=== PATIENT | female | born 1985 | race Caucasian/White ===

== ENCOUNTER 2016-12-03 21:47 | Emergency (ER) | payer OTHER ==
[2016-12-03 21:56] VITALS: BP 123/82
--- NOTE | 2016-12-03 21:58 | UC ---
Complaint Female HPI - HPI Summary HPI Summary: The patient comes in today for: 1. Vaginal itching and burning with urination: Onset: Last night. Palliative/Provocative: Nothing makes it better or worse. Quality: Burning, itching. Region: Severity: 07/13 Time: Constant. Associated symptoms: Previous disease: last one about one month ago. Rx: Terazol 7 and diflucan. Pelvic exam done at that time. Immuncompomize: None Unusual bleeding: None * - History Of Current Complaint Stated Complaint: PERSONAL Time Seen by Provider: 12/03/16 21:50 Hx Obtained From: Patient - Allergies/Home Medications Allergies/Adverse Reactions: Allergies Allergy/AdvReac Type Severity Reaction Status Date / Time Sulfa Antibiotics Allergy Intermediate Hives Verified 12/03/16 21:56 Home Medications: Home Medications Iud 12/03/16 [History] Montelukast Sodium TAB* [Singulair 10 MG TAB*] 10 mg PO BEDTIME 12/03/16 [ History Confirmed 12/03/16] PMH/Surg Hx/FS Hx/Imm Hx Previously Healthy: No Other Endocrine History: No DM or thyroid dz. Other Cardiovascular History: No cardiac problems or HTN> Other Respiratory History: + Asthma, but no PE. Other GI/ History: No GERD or ulcer, or renal disease. Other Neurological History: NO seizures or chronic headaches. Other Psychological History: No anxiety, depression or bipolar. Other Cancer History: No cancers Other History Of: Negative For: HIV, Hepatitis B, Hepatitis C, Anticoagulant Therapy - Family History Known Family History: Negative: Cardiac Disease, Hypertension - Social History Occupation: Student Alcohol Use: Occasionally Substance Use Type: None Smoking Status (MU): Never Smoked Tobacco Review of Systems Constitutional: Negative Skin: Negative Eyes: Negative ENT: Negative Respiratory: Negative Cardiovascular: Negative Gastrointestinal: Negative Genitourinary: Negative All Other Systems Reviewed And Are Negative: Yes Physical Exam Triage Information Reviewed: Yes Appearance: Well-Appearing, No Pain Distress, Well-Nourished Vital Signs Reviewed: Yes Eyes: Positive: Conjunctiva Clear. Negative: Discharge ENT: Positive: Hearing grossly normal. Negative: Pharyngeal erythema, Nasal congestion, Nasal drainage, TM bulging, TM dull, TM red, Tonsillar swelling Dental: Negative: Gross Decay/Caries @, Dental Fracture @ Neck: Positive: Supple, Nontender, No Lymphadenopathy. Negative: Nuchal Rigidity Respiratory: Positive: Chest non-tender, Lungs clear, No respiratory distress, No accessory muscle use. Negative: Crackles, Wheezing Cardiovascular: Positive: RRR, No Murmur Abdomen Description: Positive: Nontender, No Organomegaly, Soft. Negative: CVA Tenderness (R), CVA Tenderness (L), Distended, Guarding Musculoskeletal: Positive: Strength Intact, ROM Intact Neurological: Positive: Alert, Muscle Tone Normal Psychological: Positive: Age Appropriate Behavior, Consolable Skin: Negative: rashes, breakdown UC Physical Exam Vital Signs On Initial Exam: Initial Vitals Temp Pulse Resp BP Pulse Ox 97.6 F 84 16 123/82 99 12/03/16 21:51 12/03/16 21:51 12/03/16 21:51 12/03/16 21:51 12/03/16 21:51 - Genitalia Exam Female Genitourinary: Other - Patient was encouraged to get confirmatory pelvic exam, but she stated that she was pretty sure that her symptoms were from a yeast infection and declined the exam just request Terazole 7 Complaint Female Dx - Differential Dx/Diagnosis Provider Diagnoses: yeast vaginitis Discharge - Discharge Plan Condition: Stable Disposition: HOME Patient Education Materials: Vulvovaginal Candidiasis (ED) Additional Instructions: Please see your primary care or [facility] provider if you don't do well with this treatment or if you get worse.
== END 2016-12-03 22:18 | disposition home or self-care (01) ==
LOC: UCCORT 21:47
DX: B37.3 Candidiasis of vulva and vagina (principal); Z88.2 Allergy status to sulfonamides
CPT/HCPCS: 99202; G0463

== ENCOUNTER 2017-09-28 13:02 | Emergency (ER) | payer OTHER ==
[2017-09-28 13:48] VITALS: BP 125/72
--- NOTE | 2017-09-28 14:21 | UC ---
Lower Extremity/Ankle HPI - HPI Summary HPI Summary: missed 2 steps this am and fell injuring her L ankle. c/o pain and swelling despite elevation and ice plus motrin. - History of Current Complaint Chief Complaint: UCLowerExtremity Stated Complaint: (L) ANKLE INJURY S/P FALL Time Seen by Provider: 09/28/17 14:07 Hx Obtained From: Patient Hx Last Menstrual Period: unknown, mirena Onset/Duration: Sudden Onset Pain Intensity: 3 Aggravating Factor(s): Standing, Ambulation Alleviating Factor(s): Nothing Able to Bear Weight: Yes - Allergies/Home Medications Allergies/Adverse Reactions: Allergies Allergy/AdvReac Type Severity Reaction Status Date / Time Sulfa (Sulfonamide Allergy Hives Verified 09/28/17 13:44 Antibiotics) Home Medications: Home Medications Albuterol HFA INHALER* [Ventolin HFA Inhaler*] 1 puff INH Q4H PRN 09/28/17 [ History Confirmed 09/28/17] Ibuprofen TAB* [Motrin TAB* 800 MG] 800 mg PO ONCE 09/28/17 [History Confirmed 09/28/17] Levonorgestrel (Iud) [Mirena IUD] 20 mcg IU ONCE 09/28/17 [History Confirmed ] buPROPion SR TAB* [Wellbutrin SR TAB*] 100 mg PO DAILY 09/28/17 [History Confirmed 09/28/17] PMH/Surg Hx/FS Hx/Imm Hx Respiratory History: Asthma Other History Of: Negative For: HIV, Hepatitis B, Hepatitis C, Anticoagulant Therapy - Surgical History Surgical History: Yes Surgery Procedure, Year, and Place: hernia x2 - Family History Known Family History: Negative: Cardiac Disease, Hypertension - Social History Occupation: Student Lives: With Family Alcohol Use: Rare Substance Use Type: None Smoking Status (MU): Never Smoked Tobacco - Immunization History Vaccination Up to Date: Yes Review of Systems Constitutional: Negative Skin: Negative Eyes: Negative ENT: Negative Respiratory: Negative Cardiovascular: Negative Gastrointestinal: Negative Genitourinary: Negative Motor: Negative Neurovascular: Negative Musculoskeletal: Other: - pain, swelling L ankle Neurological: Negative Psychological: Negative Is Patient Immunocompromised?: No All Other Systems Reviewed And Are Negative: Yes Physical Exam Triage Information Reviewed: Yes Appearance: Well-Appearing Vital Signs: Initial Vital Signs Temp 98.5 F 09/28/17 13:42 Pulse 79 09/28/17 13:42 Resp 16 09/28/17 13:42 BP 125/72 09/28/17 13:42 Pulse Ox 100 09/28/17 13:42 Vital Signs Reviewed: Yes Eyes: Positive: Conjunctiva Clear ENT: Positive: Normal ENT inspection Neck: Positive: Supple, Nontender, No Lymphadenopathy Respiratory: Positive: Lungs clear, Normal breath sounds Cardiovascular: Positive: RRR, No Murmur Abdomen Description: Positive: Nontender, No Organomegaly, Soft Bowel Sounds: Positive: Present Musculoskeletal: Positive: Other: - LLE: hip, knee, achilles atraumatic. Lateral ankle tender and swollen. Foot nontender, s/v/m is intact. Diagnostics - Radiology No standard instances Xray Interpretation: Positive (See Comments) - no fx Radiology Interpretation Completed By: Radiologist Lower Extremity Course/Dx - Course Course Of Treatment: NO FX OR DISLOCATION. WILL SPLINT. PT HAS AN [facility] APPT IN [place] NEXT WEEK FOR HER SHOULDER AND WILL F/U WITH THIS WELL. - Differential Dx/Diagnosis Provider Diagnoses: Sprain L ankle Discharge - Sign-Out/Discharge Documenting (check all that apply): Discharge - Discharge Plan Condition: Stable Disposition: HOME Patient Education Materials: Ankle Sprain (DC) Referrals: Katherin Oh PA [Primary Care Provider] - If Needed Additional Instructions: FOLLOW UP WITH YOUR ORTHOPEDIST IN [place] SCHEDULED FOR NEXT WEEK. USE THE BOOT TO WALK UNTIL CLEARED. - Billing Disposition and Condition Condition: STABLE Disposition: HOME
--- NOTE | 2017-09-28 14:42 | RAD ---
HISTORY: Left ankle pain, trauma COMPARISONS: None VIEWS: 3, Frontal, lateral, and oblique views of the left ankle FINDINGS: BONE DENSITY: Normal. BONES: There is no displaced fracture. JOINTS: There is no arthropathy. ALIGNMENT: There is no dislocation. SOFT TISSUES: Unremarkable. OTHER FINDINGS: None. IMPRESSION: NO ACUTE OSSEOUS INJURY. IF SYMPTOMS PERSIST, RECOMMEND REPEAT IMAGING.
== END 2017-09-28 15:05 | disposition home or self-care (01) ==
LOC: UCCORT 13:02
DX: S93.402A Sprain of unspecified ligament of left ankle, initial encounter (principal); W19.XXXA Unspecified fall, initial encounter; Y92.9 Unspecified place or not applicable; Z88.2 Allergy status to sulfonamides
CPT/HCPCS: 99212; G0463

== ENCOUNTER 2018-07-04 13:05 | Emergency (ER) | payer OTHER ==
[2018-07-04 14:02] VITALS: BP 125/72
--- NOTE | 2018-07-04 14:49 | UC ---
Throat Pain/Nasal Kenneth HPI - HPI Summary HPI Summary: C/O sore throat since yesterday. Throat so swollen had to sleep sitting up. No cough or congestion. - History of Current Complaint Chief Complaint: UCRespiratory Stated Complaint: THROAT COMPLAINT Time Seen by Provider: 07/04/18 14:42 Hx Obtained From: Patient Hx Last Menstrual Period: 1 yr + ?: No Onset/Duration: Sudden Onset, Lasting Days - 1, Worse Since - yesterday Severity: Mild Pain Intensity: 2 Cough: None Associated Signs & Symptoms: Positive: Dysphagia. Negative: Wheezing, Hoarseness, Sinus Discomfort, Nasal Discharge, Fever Related History: Seasonal Allergies - Allergies/Home Medications Allergies/Adverse Reactions: Allergies Allergy/AdvReac Type Severity Reaction Status Date / Time Sulfa (Sulfonamide Allergy Hives Verified 07/04/18 14:02 Antibiotics) Home Medications: Home Medications Acetaminophen/Caffeine [Excedrin Tension Headache Cplt] 2 each PO DAILY PRN 07/22 [History Confirmed 07/04/18] PMH/Surg Hx/FS Hx/Imm Hx Respiratory History: Asthma Other History Of: Negative For: HIV, Hepatitis B, Hepatitis C, Anticoagulant Therapy - Surgical History Surgical History: Yes Surgery Procedure, Year, and Place: hernia x 2: umbilical, ventral - Family History Known Family History: Negative: Cardiac Disease, Hypertension, Diabetes - Social History Occupation: Student Lives: With Family Alcohol Use: Rare Substance Use Type: None Smoking Status (MU): Never Smoked Tobacco - Immunization History Vaccination Up to Date: Yes Review of Systems All Other Systems Reviewed And Are Negative: Yes ENT: Positive: Sore Throat Is Patient Immunocompromised?: No Physical Exam Triage Information Reviewed: Yes Appearance: No Pain Distress, Well-Nourished, Ill-Appearing Vital Signs: Initial Vital Signs Temp 98.8 F 07/04/18 13:58 Pulse 70 07/04/18 13:58 Resp 18 07/04/18 13:58 BP 125/72 07/04/18 13:58 Pulse Ox 100 07/04/18 13:58 Vital Signs Reviewed: Yes Eyes: Positive: Conjunctiva Inflamed ENT: Positive: Pharyngeal erythema - Posterior pharynx lymphoid hyperplasia, TMs normal Neck: Positive: Enlarged Nodes @ - shotty LA bilaterally Respiratory Exam: Normal Cardiovascular Exam: Normal Musculoskeletal Exam: Normal Neurological Exam: Normal Psychological Exam: Normal Skin Exam: Normal Throat Pain/Nasal Course/Dx - Differential Dx/Diagnosis Differential Diagnosis/HQI/PQRI: Peritonsillar Abscess, Pharyngitis, Tonsillitis , URI Provider Diagnosis: Pharyngitis Discharge - Sign-Out/Discharge Documenting (check all that apply): Patient Departure All imaging exams completed and their final reports reviewed: No Studies - Discharge Plan Condition: Stable Disposition: HOME Prescriptions: predniSONE TAB* [Deltasone 20 MG TAB*] 60 mg PO DAILY #18 tab Patient Education Materials: Pharyngitis (ED), Prednisone (By mouth) Referrals: Katherin Oh PA [Primary Care Provider] - - Billing Disposition and Condition Condition: STABLE Disposition: Home
== END 2018-07-04 15:00 | disposition home or self-care (01) ==
LOC: UCCORT 13:05
DX: J02.9 Acute pharyngitis, unspecified (principal); Z88.2 Allergy status to sulfonamides
CPT/HCPCS: 87651; 99212; G0463

== ENCOUNTER 2018-07-09 16:30 | Emergency (ER) | payer OTHER ==
--- NOTE | 2018-07-09 16:44 | UC ---
Eye Complaint HPI - HPI Summary HPI Summary: 33 year old female presents with 2 day history of right eye redness, itchiness, purulent drainage, and eye crusted shut in the morning. Denies injury, fever, chills, eye pain, visual disturbances, nasal congestion, nasal discharge, sinus pain or pressure. Wears contacts. - History of Current Complaint Stated Complaint: POSSIBLE PINK EYE RT EYE Time Seen by Provider: 07/09/18 16:43 Hx Obtained From: Patient Hx Last Menstrual Period: 1 yr + - Allergies/Home Medications Allergies/Adverse Reactions: Allergies Allergy/AdvReac Type Severity Reaction Status Date / Time Sulfa (Sulfonamide Allergy Hives Verified 07/09/18 16:39 Antibiotics) PMH/Surg Hx/FS Hx/Imm Hx Previously Healthy: Yes Psychological History: Depression Other History Of: Negative For: HIV, Hepatitis B, Hepatitis C, Anticoagulant Therapy - Surgical History Surgical History: Yes Surgery Procedure, Year, and Place: hernia x 2: umbilical, ventral - Family History Known Family History: Positive: Non-Contributory - Social History Occupation: Student Lives: With Family Alcohol Use: Rare Substance Use Type: None Smoking Status (MU): Never Smoked Tobacco - Immunization History Vaccination Up to Date: Yes Review of Systems All Other Systems Reviewed And Are Negative: Yes Constitutional: Negative: Fever, Chills Skin: Negative: Rash Eyes: Positive: Drainage, Eye Redness. Negative: Blurred Vision, Diplopia, Photophobia ENT: Negative: Sore Throat, Ear Ache, Nasal Discharge, Sinus Congestion, Sinus Pain/Tenderness Respiratory: Negative: Shortness Of Breath, Cough Cardiovascular: Negative: Palpitations, Chest Pain Gastrointestinal: Negative: Abdominal Pain, Vomiting, Diarrhea, Nausea Genitourinary: Positive: Negative Musculoskeletal: Positive: Negative Neurological: Positive: Negative Is Patient Immunocompromised?: No Physical Exam - Summary Physical Exam Summary: GENERAL APPEARANCE: Well developed, well nourished, alert and cooperative, and appears to be in no acute distress. EYES: Right eye with conjuctival erythema and small amount of purulent drainage in the corner of the eye. Left eye normal. Extraoccular eye movements intact. No erythema or swelling of the lids. Vision is grossly intact. EARS: External auditory canals and tympanic membranes clear, hearing grossly intact. NOSE: No nasal discharge. THROAT: Oral cavity and pharynx normal. No inflammation, swelling, exudate, or lesions. Teeth and gingiva in good general condition. NECK: Neck supple, non-tender without lymphadenopathy. CARDIAC: Normal S1 and S2. No S3, S4 or murmurs. Rhythm is regular. There is no peripheral edema, cyanosis or pallor. Extremities are warm and well perfused. Capillary refill is less than 2 seconds. LUNGS: Clear to auscultation without rales, rhonchi, wheezing or diminished breath sounds. ABDOMEN: Positive bowel sounds. Soft, nondistended, nontender. No guarding or rebound. No masses or hepatosplenomegally. MUSKULOSKELETAL: ROM intact to all extremities. No joint erythema or tenderness. Normal muscular development. Normal gait. SKIN: Skin normal color, texture and turgor with no lesions or eruptions. Triage Information Reviewed: Yes Vital Signs Reviewed: Yes Eye Complaint Course/Dx - Course Course Of Treatment: 33 year old female presents with 2 day history of right eye redness, itchiness, purulent drainage, and eye crusted shut in the morning. Denies injury, fever, chills, eye pain, visual disturbances, nasal congestion, nasal discharge, sinus pain or pressure. Wears contacts. Afebrile. VSS. exam reveals right conjunctival erythema with small amount of purlulent discharge in corner of eye. Extraoccular eye movements intact. Vision grossly intact. No evidence of foreign body. Remaining exam unremarkable. Will treat for bacterila conjunctvitis with ciprofloxacin 0.3% ophthalmic 1 drops every 2 hours while awake for first 2 days then 1 drop 4 times a day for next 5 days. Patient was educated about preventing spread of infection and instructed not to wear contacts until treatment is completed. She is to follow up with her PCP in 3 days if no improvement. Warning symptoms reviewed with patient. Verbalizes understanding and agrees with POC. - Differential Dx/Diagnosis Differential Diagnosis/HQI/PQRI: Conjunctivitis, Corneal Abrasion, Periorbital Cellulitis, Orbital Cellulitis, Uveitis Provider Diagnosis: Bacterial conjunctivitis of right eye Discharge - Sign-Out/Discharge Documenting (check all that apply): Patient Departure All imaging exams completed and their final reports reviewed: No Studies - Discharge Plan Condition: Stable Disposition: HOME Prescriptions: Ciprofloxacin 0.3% OPTH.LUKE* [Cipro 0.3% Opth*] 1 drop RIGHT EYE Q2H #1 btl Patient Education Materials: Conjunctivitis (ED) Referrals: Katherin Oh PA [Primary Care Provider] - If Needed Additional Instructions: Start ciprofloxacin ophthalmic 1 drop into the affected eye every 2 hours while awake for first 2 days then 1 drop 4 times a day for next 5 days. Do not wear your contacts until you have completed the treatment. Throw out the old pair and use a new pair once you have completed you treatment. Use washcloths and towels once then launder. Do not share washcloths or towels with others. Change your pillow case each morning until you have finished treatment. You should throw out any eye makeup, especially mascara, and use a new one once you have finished treatment. Follow up here or with your primary care provider in 3 days if no improvement. Seek immediate medical attention in the emergency room if you develop fever greater than 100.5 F, have pain or swelling of the eye, visual disturbances, loss of vision, or any worsening of symptoms. - Billing Disposition and Condition Condition: STABLE Disposition: Home
[2018-07-09 16:45] VITALS: BP 126/83
== END 2018-07-09 16:59 | disposition home or self-care (01) ==
LOC: UCCORT 16:30
DX: H10.89 Other conjunctivitis (principal); Z88.2 Allergy status to sulfonamides
CPT/HCPCS: 99212; G0463

== ENCOUNTER 2018-08-29 17:53 | Emergency (ER) | payer BC, OTHER ==
[2018-08-29 19:43] VITALS: BP 121/76
[2018-08-29] MEDS ORDERED: Cyclobenzaprine TAB* 10 MG PO ONE (20:55)
--- NOTE | 2018-08-29 20:58 | UC ---
Back Pain HPI - HPI Summary HPI Summary: 33 yo female has injured her back three times since 08/22 Initially was holding her niece and sneezed no leg pain or paresthesias Pain has been constant for over 24 hours spasmotic worse with positions change also requests RX for yeast vaginitis which started today gets 1-2 episodes/yr no UTI symptoms - History of Current Complaint Chief Complaint: UCBackPain Stated Complaint: PERSONAL, BACK PAIN Time Seen by Provider: 08/29/18 20:39 Hx Obtained From: Patient Hx Last Menstrual Period: 2 yrs ?: Yes Onset/Duration: Sudden Onset, Lasting Days Timing: Intermittent, Lasting Days Severity Initially: Severe Severity Currently: Moderate Pain Intensity: 5 Pain Scale Used: 0-10 Numeric Back Pain: Is Discrete @ - see image Aggravating Factor(s): Lifting, Bending Alleviating Factor(s): Rest, OTC Meds Associated Signs And Symptoms: Positive: Negative Full Body (No Head): 1 - pain/tenderness - Allergies/Home Medications Allergies/Adverse Reactions: Allergies Allergy/AdvReac Type Severity Reaction Status Date / Time naproxen Allergy Rash/ Verified 08/29/18 19:34 itching Sulfa (Sulfonamide Allergy Hives Verified 08/29/18 19:33 Antibiotics) PMH/Surg Hx/FS Hx/Imm Hx Previously Healthy: Yes Other History Of: Negative For: HIV, Hepatitis B, Hepatitis C, Anticoagulant Therapy - Surgical History Surgical History: Yes Surgery Procedure, Year, and Place: hernia x 2: umbilical, ventral - Family History Known Family History: Positive: Non-Contributory Negative: Cardiac Disease, Hypertension, Diabetes - Social History Alcohol Use: Rare Substance Use Type: None Smoking Status (MU): Never Smoked Tobacco - Immunization History Vaccination Up to Date: Yes Review of Systems All Other Systems Reviewed And Are Negative: Yes Constitutional: Positive: Negative Skin: Positive: Negative Eyes: Positive: Negative ENT: Positive: Negative Respiratory: Positive: Negative Cardiovascular: Positive: Negative Gastrointestinal: Positive: Negative Genitourinary: Positive: Vaginal/Penile Itching, Vaginal/Penile Discharge Motor: Positive: Negative Neurovascular: Positive: Negative Musculoskeletal: Positive: Myalgia - back Neurological: Positive: Negative Psychological: Positive: Negative Physical Exam Triage Information Reviewed: Yes Appearance: Well-Appearing, No Pain Distress, Well-Nourished Vital Signs: Initial Vital Signs Temp 99.1 F 08/29/18 19:36 Pulse 76 08/29/18 19:36 Resp 18 08/29/18 19:36 BP 121/76 08/29/18 19:36 Pulse Ox 100 08/29/18 19:36 Vital Signs Reviewed: Yes Eyes: Positive: Conjunctiva Clear ENT: Positive: Uvula midline. Negative: Nasal congestion, Nasal drainage, Trismus, Muffled voice, Hoarse voice Neck: Positive: Supple, Nontender, No Lymphadenopathy Respiratory: Positive: Lungs clear, Normal breath sounds, No respiratory distress Cardiovascular: Positive: RRR, No Murmur Musculoskeletal: Positive: ROM Intact, No Edema, Other: - see image: limited ROM. (-) SLR, tender Left paraspinous muscles, neuro/strength intact Neurological Exam: Normal Neurological: Positive: Alert Psychological Exam: Normal Skin Exam: Normal Back Pain Course/Dx - Differential Dx/Diagnosis Provider Diagnosis: Acute lumbar myofascial strain, Yeast vaginitis Discharge - Sign-Out/Discharge Documenting (check all that apply): Patient Departure All imaging exams completed and their final reports reviewed: No Studies - Discharge Plan Condition: Stable Disposition: HOME Prescriptions: Cyclobenzaprine (NF) [Cyclobenzaprine 5 MG (NF)] 5 mg PO TID PRN #21 tab PRN Reason: Spasms - Back Terconazole 45 gm VG BEDTIME #1 cream.appl Patient Education Materials: Low Back Strain (ED), Vaginitis (ED) Referrals: Katherin Oh PA [Primary Care Provider] - 1 Week (if not better) Additional Instructions: continue ibuprofen - Billing Disposition and Condition Condition: STABLE Disposition: Home
== END 2018-08-29 21:13 | disposition home or self-care (01) ==
LOC: UCCORT 17:53
DX: S39.012A Strain of muscle, fascia and tendon of lower back, initial encounter (principal); B37.3 Candidiasis of vulva and vagina; Z88.2 Allergy status to sulfonamides; Z88.8 Allergy status to other drugs, medicaments and biological substances; X58.XXXA Exposure to other specified factors, initial encounter; Y92.9 Unspecified place or not applicable
CPT/HCPCS: 81003; 99212; A9270-GY; G0463

== ENCOUNTER 2018-12-20 15:10 | Emergency (ER) | payer BC ==
[2018-12-20 15:45] VITALS: BP 117/66
--- NOTE | 2018-12-20 16:02 | UC ---
UC General HPI - HPI Summary HPI Summary: pt is c/o increasing pain and swelling to her R upper eyelid x 4 days. she stopped using her contacts and began some left over cipro eye drops which are not helping. - History of Current Complaint Chief Complaint: UCEye Stated Complaint: RT EYE COMPLAINT Time Seen by Provider: 12/20/18 15:49 Hx Obtained From: Patient Hx Last Menstrual Period: IUD Onset/Duration: Gradual Onset Timing: Constant Pain Intensity: 1 Associated Signs & Symptoms: Negative: Edema, Fever, Headache - Allergy/Home Medications Allergies/Adverse Reactions: Allergies Allergy/AdvReac Type Severity Reaction Status Date / Time naproxen Allergy Rash/ Verified 12/20/18 15:42 itching Sulfa (Sulfonamide Allergy Hives Verified 12/20/18 15:42 Antibiotics) PMH/Surg Hx/FS Hx/Imm Hx - Additional Past Medical History Additional PMH: allergies Other History Of: Negative For: HIV, Hepatitis B, Hepatitis C, Anticoagulant Therapy - Surgical History Surgical History: Yes Surgery Procedure, Year, and Place: hernia x 2: umbilical, ventral - Family History Known Family History: Positive: Non-Contributory Negative: Cardiac Disease, Hypertension, Diabetes - Social History Occupation: Employed Full-time Alcohol Use: Rare Substance Use Type: None Smoking Status (MU): Never Smoked Tobacco - Immunization History Vaccination Up to Date: Yes Review of Systems All Other Systems Reviewed And Are Negative: No Constitutional: Negative: Fever, Chills Skin: Negative: Rash Eyes: Negative: Blurred Vision, Diplopia, Drainage, Eye Redness, Photophobia Neurological: Negative: Headache Physical Exam Triage Information Reviewed: Yes Appearance: Well-Appearing Vital Signs: Initial Vital Signs Temp 98.5 F 12/20/18 15:42 Pulse 65 12/20/18 15:42 Resp 15 12/20/18 15:42 BP 117/66 12/20/18 15:42 Pulse Ox 100 12/20/18 15:42 Vital Signs Reviewed: Yes Eyes: Positive: Other: - No auricular adenopathy. No periorbital edema or rash. Center of R upper lid has a small area of swelling and tenderness, adjacent inside lid has mild erythema. Conjunctiva are clear. AC's clear. PERRL, EOMI. No FB's OD. ENT: Negative: Nasal congestion, Nasal drainage Neck: Positive: Supple Neurological: Positive: Alert Psychological: Positive: Age Appropriate Behavior Skin Exam: Normal Course/Dx - Differential Dx - Multi-Symptom Differential Diagnoses: Other - globe is unremarkable. - Diagnoses Provider Diagnosis: Chalazion of right eyelid Discharge - Sign-Out/Discharge Documenting (check all that apply): Patient Departure All imaging exams completed and their final reports reviewed: No Studies - Discharge Plan Condition: Stable Disposition: HOME Prescriptions: DOXYcycline CAP(*) [DOXYcycline 100MG CAP(*)] 100 mg PO BID 7 Days #14 cap Erythromycin OPTH OINT* [Erythromycin 0.5% OPTH OINT*] 1 applic LEFT EYE TID 7 Days #1 ophth.oint Terconazole 45 gm VG QPM 7 Days #1 cream.appl Patient Education Materials: Chalazion (ED) Referrals: Arina Faith MD [Medical Doctor] - 5 Days - Billing Disposition and Condition Condition: STABLE Disposition: Home - Attestation Statements Provider Attestation: Per institutional requirements, I have reviewed the chart, however, I was not consulted specifically or made aware of this patient by the midlevel provider. I did not personally evaluate, interact with , or disposition this patient.
== END 2018-12-20 16:20 | disposition home or self-care (01) ==
LOC: UCCORT 15:10
DX: H00.11 Chalazion right upper eyelid (principal)
CPT/HCPCS: 99212; G0463

== ENCOUNTER 2019-04-11 12:58 | Emergency (ER) | payer BC ==
--- OUTSIDE RECORDS SUMMARY | 2019-04-11 13:05 | XMS REPORT | Continuity of Care Document ---
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 Problems Active Problems Provider Date IUD check Trinidad Brice NP Onset: 12/01/2016 Contraception care education Trinidad Brice NP Onset: 11/24/2016 Social History Type Date Description Comments Sex Female Tobacco Use Start: Unknown Never Smoked Cigars Tobacco Use Start: Unknown Never Smoked A Pipe Tobacco Use Start: Unknown Never Used Smokeless Tobacco ETOH Use Currently consumes alcohol Recreational Drug Use Denies Drug Use Tobacco Use Reviewed: 02/16/19 Patient has never smoked Recreational Drug Use Teaching provided regarding Naloxone/Narcan Training Available At [facility] Smoking Status Reviewed: 02/16/19 Patient has never smoked Tattoo/Piercing Pierced ears Tattoo/Piercing Tattoo no concerns Allergies, Adverse Reactions, Alerts Active Allergies Reaction Severity Comments Date Sulfa Antibiotics 09/29/2016 Aleve Hives Mild 02/16/2019 Medications Active Medications SIG Qnty Indications Ordering Date Provider Mirena (52 MG) one device Z30.014 In Sharon Castro MD 11/24/2016 intrauterine 20mcg/24HR IUD Singulair Unknown Albuterol Sulfate Unknown Medications Administered in Office Medication SIG Qnty Indications Ordering Provider Date Contraceptive Pills Control Trinidad Brice NP 12/22/2016 Injection Contraceptive Pills Control Trinidad Brice NP 09/29/2016 Injection Immunizations Description No Information Available Vital Signs Date Vital Result Comment 10/06/2017 11:28am BP Systolic 116 mmHg BP Diastolic 70 mmHg Height 68 inches 5'8" Weight 183.00 lb BMI (Body Mass Index) 27.8 kg/m2 05/31/2017 9:39am BP Systolic 115 mmHg BP Diastolic 67 mmHg Height 68 inches 5'8" Weight 184.00 lb BMI (Body Mass Index) 28.0 kg/m2 Results Description No Information Available Procedures Description No Information Available Medical Devices Description No Information Available Encounters Description No Information Available Assessments Date Code Description Provider 02/16/2019 Z30.431 Encounter for routine checking of intrauterine Amarilis Monroy NP contraceptive device Plan of Treatment 02/16/2019 - Amarilis Monroy NPZ30.431 Encounter for routine checking of intrauterine contraceptive deviceComments: control end of visit: Functional Status Description No Information Available Mental Status Description No Information Available Referrals Description No Information Available
--- OUTSIDE RECORDS SUMMARY | 2019-04-11 13:05 | XMS REPORT | Continuity of Care Document ---
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 Problems Active Problems Provider Date IUD [...] Teaching provided regarding Naloxone/Narcan Training Available At [facility] Smoking Status Reviewed: 02/16/19 Patient has never [...] Available Vital Signs Date Vital Result Comment 02/16/2019 12:27pm BP Systolic 108 mmHg BP Diastolic 75 mmHg BP Systolic Recheck 117 mmHg post IUD removal BP Diastolic Recheck 68 mmHg post IUD removal Weight 174.00 lb 10/06/2017 11:28am BP Systolic 116 mmHg BP Diastolic 70 mmHg Height 68 inches 5'8" Weight 183.00 lb BMI (Body Mass Index) 27.8 kg/m2 Results Description No Information Available Procedures Date Code Description Status 02/16/2019 65073 Remove Intrauterine Device Completed Medical Devices Description No Information Available Encounters Description No Information Available Assessments Date Code Description Provider 02/16/2019 Z30.431 Encounter for routine checking of intrauterine Amarilis Monroy NP contraceptive device Plan of Treatment 02/16/2019 - Amarilis Monroy NPZ30.431 Encounter for routine checking of intrauterine contraceptive deviceComments:IUD removed. Patient tolerated well. Advised patient to monitor menses and if they do not return or are not regular, she should rto and will consider evaluation for PCOS. Patient states understanding.Follow up:for annual or prn any concerns Functional Status Description No Information Available Mental Status Description No Information Available Referrals Description No Information Available
[2019-04-11 13:46] VITALS: BP 116/70
--- NOTE | 2019-04-11 14:15 | UC ---
Back Pain HPI - HPI Summary HPI Summary: 33-year-old woman comes in with a chief complaint of low back pain. She's been having the pain on and off for many years. Little more than a week ago had an exacerbation of low back pain. No specific injury. She's been trying anti- inflammatories and a lidocaine patch. She went to the emergency department less than had a lidocaine injection and also started on Flexeril. She was able to sleep overnight however the pains as bad now as it has been prior to her visit to the emergency department. Pains in the mid lower lumbar spine and radiates to the left and the right. It does not radiate into the buttocks or in the sciatic distribution. No pain weakness or numbness in the legs no difficulty controlling urine or bowels. Pain is improved with laying flat. It' s worse with standing up. - History of Current Complaint Chief Complaint: UCBackPain Stated Complaint: LOW BACK PAIN Time Seen by Provider: 04/11/19 13:45 Hx Last Menstrual Period: 03/09/19 Pain Intensity: 9 - Allergies/Home Medications Allergies/Adverse Reactions: Allergies Allergy/AdvReac Type Severity Reaction Status Date / Time naproxen Allergy Rash/ Verified 04/11/19 13:47 itching Sulfa (Sulfonamide Allergy Hives Verified 04/11/19 13:47 Antibiotics) Home Medications: Home Medications Cyclobenzaprine TAB* [Flexeril 10 MG TAB*] 10 mg PO TID PRN 04/11/19 [History Confirmed 04/11/19] Ibuprofen TAB* [Motrin TAB* 600 MG] 600 mg PO Q6H PRN 04/11/19 [History Confirmed 04/11/19] PMH/Surg Hx/FS Hx/Imm Hx Previously Healthy: Yes Other History Of: Negative For: HIV, Hepatitis B, Hepatitis C, Anticoagulant Therapy - Surgical History Surgical History: Yes Surgery Procedure, Year, and Place: hernia x 2: umbilical, ventral - Family History Known Family History: Positive: Non-Contributory Negative: Cardiac Disease, Hypertension, Diabetes - Social History Alcohol Use: None Substance Use Type: None Smoking Status (MU): Never Smoked Tobacco - Immunization History Vaccination Up to Date: Yes Review of Systems All Other Systems Reviewed And Are Negative: Yes Constitutional: Positive: Negative Skin: Positive: Negative Eyes: Positive: Negative ENT: Positive: Negative Respiratory: Positive: Negative Cardiovascular: Positive: Negative Gastrointestinal: Positive: Negative Genitourinary: Positive: Negative Motor: Positive: Other - SEE HPI Neurovascular: Positive: Negative Musculoskeletal: Positive: Other: - SEE HPI Neurological: Positive: Negative Psychological: Positive: Negative Is Patient Immunocompromised?: No Physical Exam Triage Information Reviewed: Yes Appearance: Well-Appearing, Well-Nourished, Pain Distress - MILD WITH ROM Vital Signs: Initial Vital Signs Temp 98.8 F 04/11/19 13:40 Pulse 82 04/11/19 13:40 Resp 16 04/11/19 13:40 BP 116/70 04/11/19 13:40 Pulse Ox 100 04/11/19 13:40 Vital Signs Reviewed: Yes Eye Exam: Normal Eyes: Positive: Conjunctiva Clear ENT: Positive: Pharynx normal Neck: Positive: Supple Respiratory: Positive: No respiratory distress Musculoskeletal: Positive: Strength Intact, Other: - Low back is tender to palpation mid lumbar and onto the paraspinous muscles bilaterally. Legs have full range of motion full-strength no sensation deficits. Neurological: Positive: Alert Psychological: Positive: Age Appropriate Behavior Skin Exam: Normal Back Pain Course/Dx - Course Course Of Treatment: Patient has no focal neurologic deficit. Patient's are on Flexeril. She's also using lidocaine patch. Noticed that the patient on a five-day course of prednisone. Plan is to follow-up with sports medicine. We discussed using hydrocodone however the patient's worried about the possibility of constipation therefore no prescription for hydrocodone. Discussed that if she had any neurologic deficit she needed to get reevaluated right away. - Differential Dx/Diagnosis Provider Diagnosis: Low back pain, Stye Discharge ED - Sign-Out/Discharge Documenting (check all that apply): Patient Departure All imaging exams completed and their final reports reviewed: No Studies - Discharge Plan Condition: Stable Disposition: HOME Prescriptions: Ciprofloxacin 0.3% OPTH.LUKE* [Cipro 0.3% Opth*] 1 drop LEFT EYE Q2H #1 btl predniSONE TAB* [Deltasone 20 MG TAB*] 40 mg PO DAILY #10 tab Patient Education Materials: Stye (ED), Acute Low Back Pain (ED), Lower Back Exercises (ED) Referrals: Katherin Oh PA [Primary Care Provider] - [facility] [Provider Group] Additional Instructions: FOLLOW UP WITH SPORTS MEDICINE. GET REEVALUATED SOONER IF NOT IMPROVING OR YOUR CONDITION WORSENS; WEAKNESS, NUMBNESS, DIFFICULTY CONTROLLING BOWEL OR BLADDER OR ANY QUESTIONS OR CONCERNS - Billing Disposition and Condition Condition: STABLE Disposition: Home
== END 2019-04-11 14:27 | disposition home or self-care (01) ==
LOC: UCCORT 12:58
DX: M54.5 Low back pain (principal); H00.019 Hordeolum externum unspecified eye, unspecified eyelid; Z88.6 Allergy status to analgesic agent; Z88.2 Allergy status to sulfonamides
CPT/HCPCS: 99212; G0463

== ENCOUNTER 2019-09-01 09:50 | Emergency (ER) | payer BC ==
--- OUTSIDE RECORDS SUMMARY | 2019-09-01 09:56 | XMS REPORT | Continuity of Care Document ---
:1985 External Reference #:[id number] Author Name Palma Daniel MD Address [address] [place] [id number] Problems Description No Information Available Social History Type Date Description Comments Sex Unknown Tobacco Use Start: Unknown Never Smoked Cigarettes Smoking Status Reviewed: 07/05/19 Never Smoked Cigarettes ETOH Use Rarely consumes alcohol Tobacco Use Start: Unknown Patient has never smoked Exercise Type/Frequency Exercises regularly Allergies, Adverse Reactions, Alerts Active Allergies Reaction Severity Comments Date Sulfamethoxazole / Trimethoprim Mild 05/01/2019 Inactive Allergies NKDA 05/01/2019 Medications Active Medications SIG Qnty Indications Ordering Provider Date Naproxen Sodium one tablet every 60tabs Palma Daniel MD 05/01/2019 220mg 12 hours as Tablets needed for pain Montelukast Sodium 1 by mouth every Unknown 10mg day Tablets Albuterol Sulfate HFA Unknown 108(90Base) mcg/Act Aerosol Immunizations Description No Information Available Vital Signs Date Vital Result Comment 07/05/2019 9:09am Height 68 inches 5'8" Weight 183.00 lb Heart Rate 68 /min BP Systolic 112 mmHg BP Diastolic 73 mmHg O2 % BldC Oximetry 100 % BMI (Body Mass Index) 27.8 kg/m2 06/22/2019 3:38pm Height 68 inches 5'8" Weight 183.00 lb Heart Rate 72 /min BP Systolic 124 mmHg BP Diastolic 66 mmHg O2 % BldC Oximetry 99 % BMI (Body Mass Index) 27.8 kg/m2 Last Menstrual Period [id number] Results Test Acquired Date Facility Test Result H/L Range Note Cytology 06/22/2019 [facility] Cytology SEE RESULT BELOW [address] [place] [address] [phone] PDFReport SEE IMAGE 1 SEE RESULT BELOW Name: AFIA COPPOLA : [address]: Ruchi Del Castillo NP [facility] Acct: [id number] Unit: [id number] AGE: 34 Location: [facility] Re06/22/19 SEX: F Status: REG REF SPEC: [id number] AN: 06/22/[address]: Ruchi Del Castillo NP [facility] REQ: [id number] RECD: 06/22/19 STATUS: SOUT _ ORDERED: TP IMAGE ANALYS, HPV/Thin Prep, HPV 16/18 GENE COMMENTS: [id number] FINAL DIAGNOSIS Negative for Intraepithelial lesion or Malignancy HPV RESULTS Date Time Test Result Flag (u) Normal Range 06/22/19 1607 HPV KINGA RFLX GE Negative Negative The high-risk HPV types detected by the assay include: 16, 18, 31, 33, 35, 39, 45, 51, 52, 56, 58, 59, 66, and 68. SPECIMEN(S) RECEIVED A. Ectocervical/Endocervical CYTOLOGY ADEQUACY Specimen Adequacy: Satisfactory of evaluation Transformation zone component identified CONTINUED ON NEXT PAGE DEPARTMENT OF PATHOLOGY, [address] [place] [id number] Ulises Segundo M.D. Director [facility] # [id number] CYTOLOGY PATIENT INFORMATION Patient Information: HPV: High risk HPV RNA testing regardless of pap results. HPV 16/18 Genotype Reflex Actual Specimen Date: 06/22/19 ?: N Post Menopausal?: N Hysterectomy?: N Previous Abnormal Pap Smears?:N Signed by and Reported on: GERALD Viera (ASCP) 1510 This Pap test was evaluated with the assistance of the My Team Zone Test Imaging System. Due to cytologic findings at the industrial servicer microscope, comprehensive manual rescreening by a Latex Ribbon Machine Operator may be required. The Pap Smear is a screening test designed to aid in the detection of premalignant and malignant conditions of the uterine cervix. It is not a diagnostic procedure and should not be used as the sole means of detecting cervical cancer. Both false- positive and false- negative reports do occur. Depending on your risk status, a Pap smear should be obtained and evaluated every 1-3 years. END OF REPORT DEPARTMENT OF PATHOLOGY, [address] [place] [id number] Ulises Segundo M.D. Director [facility] # [id number] Procedures Description No Information Available Medical Devices Description No Information Available Encounters Type Date Location Provider Dx Diagnosis Office Visit 06/19/2019 Sports Medicine Zane Daniel MD M54.5 Low back pain 3:50p [facility] [place] Office Visit 05/29/2019 Sports Medicine Zane Daniel MD M54.5 Low back pain 4:10p [facility] [place] M54.16 Radiculopathy, lumbar region Office Visit 05/01/2019 4:10p Sports Palma Spence4.16 Radiculopathy, Medicine Of MD María lumbar region [facility] [place] M54.5 Low back pain Assessments Date Code Description Provider 07/17/2019 M54.5 Low back pain Palma Daniel MD 07/05/2019 N92.6 Irregular menstruation, unspecified Jewels Barrett 06/22/2019 Z01.411 Encounter for gynecological examination Jewels Barrett (general) (routine) with abnormal findings 06/22/2019 N92.6 Irregular menstruation, unspecified Jewels Barrett 06/19/2019 M54.5 Low back pain Palma Daniel MD 05/29/2019 M54.5 Low back pain Palma Daniel MD 05/29/2019 M54.16 Radiculopathy, lumbar region Palma Daniel MD 05/01/2019 M54.16 Radiculopathy, lumbar region Palma Daniel MD 05/01/2019 M54.5 Low back pain Palma Daniel MD Plan of Treatment No Information Available Functional Status Description No Information Available Mental Status Description No Information Available Referrals Refer to Dr Reason for Referral Status Appt Date Chinmay Morrison MD Consult for epidural injection Created [address] [place] [address] [phone]
--- OUTSIDE RECORDS SUMMARY | 2019-09-01 09:56 | XMS REPORT | Continuity of Care Document ---
:1985 External Reference #:[id number] Author Name Ruchi Quinonezkins, CROWN PRESSER-Cde (transmitted by agent of provider Maryann Yoo) Address [address], [place] [address] Problems Description No Information Available Social History [...] Mass Index) 27.8 kg/m2 Last Menstrual Period [id number] Results Test Acquired Date Facility Test Result H/L Range Note Cytology 06/22/2019 [facility] Cytology SEE RESULT BELOW [address] [place], [place] [id number] [phone] PDFReport SEE IMAGE 1 SEE RESULT BELOW Name: AFIA COPPOLA : [address]: Ruchi Del Castillo NP [facility] Acct: [id number] Unit: [id number] AGE: 34 Location: [facility] Re06/22/19 SEX: F Status: REG REF SPEC: [id number] AN: 06/22/19-[address]: Ruchi DAVID REQ: [id number] RECD: 06/22/19 STATUS: SOUT _ ORDERED: TP IMAGE ANALYS, HPV/Thin Prep, HPV 16/18 GENE COMMENTS: [id number] FINAL DIAGNOSIS Negative for Intraepithelial lesion or [...] CONTINUED ON NEXT PAGE DEPARTMENT OF PATHOLOGY, [facility] [employer] [place], [place] [address] Ulises Segundo M.D. Director [facility] # [id number] CYTOLOGY PATIENT INFORMATION Patient Information: HPV: High risk HPV RNA testing regardless of pap results. HPV 16/18 Genotype Reflex Actual Specimen Date: 06/22/19 ?: N Post Menopausal?: N Hysterectomy?: N Previous Abnormal Pap Smears?:N Signed by and Reported on: GERALD Viear (ASCP) 1510 This Pap test was evaluated with the assistance of the CorNovap Test Imaging System. Due to cytologic findings at the dynamometer repairer microscope, comprehensive manual rescreening by a Equine Intern may be required. The Pap Smear is [...] years. END OF REPORT DEPARTMENT OF PATHOLOGY, [facility] [employer] [place], [place] [address] Ulises Segundo M.D. 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[facility] [place] Office Visit 05/29/2019 Sports Medicine Palma Daniel MD M54.5 Low back pain 4:10p [facility] [place] M54.16 Radiculopathy, lumbar region Office Visit 05/01/2019 4:10p Sports Palma Foreign.16 Radiculopathy, Medicine Of MD María lumbar region [facility] [place] M54.5 Low back pain Assessments Date Code Description Provider 07/05/2019 N92.6 Irregular menstruation, unspecified Jewels Barrett [...] pain Palma Daniel MD Plan of Treatment Future Appointment(s):07/17/2019 3:30 pm - Palma Daniel MD at [facility] AT Hecjcrvu90/02/2020 - Aramis BarretteN92.6 Irregular menstruation, unspecified Functional Status Description No Information Available Mental Status Description No Information Available Referrals Description No Information Available
[2019-09-01 10:17] VITALS: BP 111/70
--- NOTE | 2019-09-01 11:10 | UC ---
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 this time I got a really bad yeast infection from the doxycycline ... she gave me two pills of Diflucan ... " Suspected vaginal yeast infection for eleven days; patient has taken two doses of Diflucan and seven doses of PV Terconazole 0.4% cream with moderate improvement (10/10 down to 2/10). Currently, has "no discharge, I never have discharge ... " and "my inner labia are burning" and "itchy, but, like, you know you still have it." Patient is concerned about BV or strep B." -she has always had very difficult to treat yeast infections. denies known history of DM or fhx DM. hasnt had labs checked in a long time. she moved here 2 ysr ago and is in process of getting local drs established. she is on waiting list w/ new PCP but does not have appt scheduled yet. -[employer] has never worked for her, even in college. she had a left over terconzaole 7 day cream that has nearly reslved the sx. no dc. - History Of Current Complaint Chief Complaint: UCGU Stated Complaint: PERSONNAL Time Seen by Provider: 09/01/19 10:49 Hx Last Menstrual Period: 07/28/2019 Pain Intensity: 2 - Allergies/Home Medications Allergies/Adverse Reactions: Allergies Allergy/AdvReac Type Severity Reaction Status Date / Time Sulfa (Sulfonamide Allergy Hives Verified 09/01/19 10:12 Antibiotics) Home Medications: Home Medications Montelukast Sodium TAB* [Singulair 10 MG TAB*] 10 mg PO QAM 12/03/16 [History Confirmed 09/01/19] Cyclobenzaprine TAB* [Flexeril 10 MG TAB*] 10 mg PO TID PRN 04/11/19 [History Confirmed 09/01/19] Ibuprofen TAB* [Motrin TAB* 600 MG] 600 mg PO Q6H PRN 04/11/19 [History Confirmed 09/01/19] Terconazole 0.4 % VG QPM PRN 09/01/19 [History Confirmed 09/01/19] Terconazole 20 gm VG DAILY 7 Days #1 cream.appl 09/01/19 [Rx] PMH/Surg Hx/FS Hx/Imm Hx Previously Healthy: Yes Other History Of: Negative For: HIV, Hepatitis B, Hepatitis C, Anticoagulant Therapy - Surgical History Surgical History: Yes Surgery Procedure, Year, and Place: Ventral Herniorrhaphy, 2008, [place]; Umbilical herniorrhaphy, 1993, [place] - Family History Known Family History: Positive: Non-Contributory Negative: Cardiac Disease, Hypertension, Diabetes - Social History Alcohol Use: None Substance Use Type: None Smoking Status (MU): Never Smoked Tobacco - Immunization History Vaccination Up to Date: Yes Review of Systems All Other Systems Reviewed And Are Negative: Yes Constitutional: Positive: Negative. Negative: Fever, Chills, Fatigue Skin: Positive: Negative Eyes: Positive: Negative ENT: Positive: Negative Respiratory: Positive: Negative Cardiovascular: Positive: Negative Gastrointestinal: Positive: Negative Genitourinary: Positive: Dysuria - mild bc yeast sx Motor: Positive: Negative Neurovascular: Positive: Negative Musculoskeletal: Positive: Negative Neurological/Mental Status: Positive: Negative Psychological: Positive: Negative Is Patient Immunocompromised?: No Physical Exam Triage Information Reviewed: Yes Appearance: Well-Appearing, No Pain Distress, Well-Nourished - good historian Vital Signs: Initial Vital Signs Temp 98.7 F 09/01/19 10:08 Pulse 66 09/01/19 10:08 Resp 16 09/01/19 10:08 BP 111/70 09/01/19 10:08 Pulse Ox 100 09/01/19 10:08 Vital Signs Reviewed: Yes Eye Exam: Normal ENT Exam: Normal Respiratory Exam: Normal Respiratory: Positive: Chest non-tender, Lungs clear Cardiovascular Exam: Normal Cardiovascular: Positive: RRR Abdominal Exam: Normal Neurological Exam: Normal Neurological: Positive: Alert Psychological Exam: Normal Complaint Female Dx - Course Course Of Treatment: Clicnial suspicion for vaginal candidiasis d/t doxy given recently for stye. She is 80% improved. diflcuan is never effective for her since she was in college but terconazole 4% cream always is. we will draw an a1c in her bc of difficulty to treat candidiasis and she is not yet esatblsihed w/ Pcp or bleacher kraft pulp locally. she is agreeable to this. treat w/ 2nd course of terconazole. request 2 RFs of med, but will stephen her 1 RF based on the fact that she is on a waiting list to establish. She is very agreeable to this. - Differential Dx/Diagnosis Differential Diagnosis/HQI/PQRI: Urinary Tract Infection Provider Diagnosis: Candidiasis of female genitalia Discharge ED - Sign-Out/Discharge Documenting (check all that apply): Patient Departure All imaging exams completed and their final reports reviewed: No Studies - Discharge Plan Condition: Stable Disposition: HOME Prescriptions: Terconazole 20 gm VG DAILY 7 Days #1 cream.appl Patient Education Materials: Yeast Infection (ED) Referrals: Katherin Oh PA [Primary Care Provider] - Additional Instructions: We have ordered a test called hgb A1c to make sure you don't have diabetes based on the difficulty of treating your yeast infections. Also, you are on a waiting list with your new PCP. You can call us in 2-3 days for those results. Follow up with your new PCP/Screw Down - Billing Disposition and Condition Condition: STABLE Disposition: Home
--- NOTE | 2019-09-02 07:14 | UC ---
- Progress Note Progress Note: Notify patient HGB-A1C test was 5.5. This is normal and does not indicate diabetes. Course/Dx - Diagnoses Provider Diagnoses: Candidiasis of female genitalia Discharge ED - Sign-Out/Discharge Documenting (check all that apply): Post-Discharge Follow Up All imaging exams completed and their final reports reviewed: No Studies - Discharge Plan Condition: Stable Disposition: HOME Prescriptions: Terconazole 20 gm VG DAILY 7 Days #1 cream.appl Patient Education Materials: Yeast Infection (ED) Referrals: Katherin Oh PA [Primary Care Provider] - Additional Instructions: We have ordered a test called hgb A1c to make sure you don't have diabetes based on the difficulty of treating your yeast infections. Also, you are on a waiting list with your new PCP. You can call us in 2-3 days for those results. 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
== END 2019-09-01 11:34 | disposition home or self-care (01) ==
LOC: UCCORT 09:50
DX: B37.49 Other urogenital candidiasis (principal); Z88.2 Allergy status to sulfonamides
CPT/HCPCS: 36415; 81003; 83036; 84702; 99212; G0463